=== PATIENT | male | born 1985 ===

== ENCOUNTER 2024-05-26 13:16 | Emergency (ER) | payer OTHER ==
[2024-05-26] MEDS: Midazolam 1 MG/ML 2 ML SDV IVPUSH ONE ×4 (13:20→17:01)
[2024-05-26] MEDS: Ketamine 500 mg/10 ML MDV IV ONE ×2 (13:20→16:56)
[2024-05-26] MEDS ORDERED: Sodium Chloride 0.9% 10 ML Syringe FLUSH PRN (13:22)
[2024-05-26 13:31] LABS: BASOPHILS PERCENT AUTO 0.2 % (0.0-1.0); HEMATOCRIT 41.2 % (40.0-54.0); HEMOGLOBIN 13.8 g/dL (14.0-18.0); LYMPHOCYTES PERCENT AUTO 8.3 % (20.5-50.1); MEAN CORPUSCULAR HEMOGLOBIN 33.8 pg (27.0-34.0); MEAN CORPUSCULAR HGB CONC 33.5 g/dL (33.0-35.0); MONOCYTES PERCENT AUTO 21.5 % (2-8); PLATELET COUNT,PLT 133 10^3/uL (150-450); RED BLOOD CELL COUNT 4.08 10^6/uL (4.6-6.2); WHITE BLOOD CELL COUNT,WBC 12.4 10^3/uL (5.0-10.0)
[2024-05-26 13:51] LABS: APPEARANCE,URINE CLEAR (CLEAR); BILIRUBIN,URINE SMALL (NEGATIVE); COLOR,URINE ORANGE (YELLOW); GLUCOSE,URINE NEGATIVE (NEGATIVE); KETONES,URINE 40 (NEGATIVE); LEUKOCYTE ESTERASE,URINE NEGATIVE (NEGATIVE); NITRITE,URINE POSITIVE (NEGATIVE); OCCULT BLOOD,URINE LARGE (NEGATIVE); PH,URINE 5.5 (5.0-9.0); PROTEIN,URINE >=300 (NEGATIVE)
[2024-05-26 14:00] LABS: ALANINE AMINOTRANSFERASE,ALT 159 U/L (16-63); ALBUMIN 4.5 g/dL (3.4-5.0); ALKALINE PHOSPHATASE 94 U/L (46-116); ANION GAP 18.7 mEq/L (7-13); ASPARTATE AMNIOTRANSFERASE,AST 311 U/L (15-37); BILIRUBIN TOTAL 2.8 mg/dL (0.2-1.0); BLOOD UREA NITROGEN,BUN 26 mg/dL (7-18); BUN/CREATININE RATIO 24.3 (No establ ref range); C-REACTIVE PROTEIN 1.27 ng/dL (<=0.50); CALCIUM 9.8 mg/dL (8.5-10.1); CARBON DIOXIDE,CO2 25 mmol/L (21-32); CHLORIDE,CL 99 mmol/L (98-107); CREATININE 1.07 mg/dL (0.70-1.30); GLUCOSE RANDOM 94 mg/dL (70-99); MAGNESIUM 2.1 mg/dL (1.8-2.4); POTASSIUM,K 3.7 mmol/L (3.5-5.1); PROTEIN TOTAL,TP 9.1 g/dL (6.4-8.2); SODIUM,NA 139 mmol/L (136-145); TSH ULTRASENSITIVE 0.89 uIU/mL (0.36-3.74)
[2024-05-26 14:00] LABS: AMPHETAMINES,URINE NEGATIVE (NEGATIVE); BARBITURATES,URINE NEGATIVE (NEGATIVE); BENZODIAZEPINE,URINE NEGATIVE (NEGATIVE); MDMA (ECSTASY), URINE NEGATIVE (NEGATIVE); METHADONE,URINE NEGATIVE (NEGATIVE); METHAMPHETAMINES,URINE NEGATIVE (NEGATIVE); OPIATES,URINE NEGATIVE (NEGATIVE); OXYCODONE,URINE NEGATIVE (NEGATIVE); PHENCYCLIDINE,URINE NEGATIVE (NEGATIVE); TCA,URINE NEGATIVE (NEGATIVE)
[2024-05-26 14:01] LABS: BACTERIA,URINE FEW /HPF (0-FEW/HPF); EPITHELIAL CELLS,URINE FEW /HPF (NOT SEEN); MUCUS,URINE MODERATE /LPF (NOT SEEN); RBC,URINE 0-5 /HPF (0-5); WBC,URINE 0-5 /HPF (0-5/HPF)
[2024-05-26 14:02] LABS: AMORPHOUS SEDIMENT,URINE MODERATE /HPF (NOT SEEN); GRANULAR CASTS,URINE FEW; HYALINE CASTS,URINE MODERATE
[2024-05-26 14:04] LABS: ESTIMATED GFR 92 mL/min (>=60); ETHANOL BLOOD MEDICAL < 3 mg/dL (0)
[2024-05-26] MEDS: Iopamidol 612 MG/ML 100 ML Bottle IVPUSH ONE (14:12)
[2024-05-26 14:41] LABS: ACETAMINOPHEN 0 ug/mL (10-30 (Therapeutic)); LIPASE 74 U/L (16-77)
[2024-05-26] MEDS: Sodium Chloride 0.9% 1,000 ML IV ONE (14:50)
[2024-05-26] MEDS: Midazolam 1 MG/ML 2 ML SDV ONE ×2 (15:25)
== END 2024-05-26 15:50 ==
LOC: DL.ED 13:16
DX: N30.01 Acute cystitis with hematuria (principal)
CPT/HCPCS: 36415; 70450; 72170; 73120-LT; 73120-RT; 74177; 80053; 80143; 80305-QW; 80307; 81001; 82140; 83690; 83735; 84443; 85025; 86140; 87086; 96361; 96374; 96375; 99284; 99285-25; J2250; J3490; J7030; Q9967